=== PATIENT | male | born 1945 | race Caucasian/White ===

== ENCOUNTER 2023-09-06 02:09 | Inpatient (IN) | payer MEDICARE ==
[2023-09-06] VITALS (23 sets, daily range): BP systolic 86–161; BP diastolic 42–88; TEMP 97–98.7; O2SAT 92–100
[~2023-09-06] VITALS: Ht 177.8 cm; Wt 88.0 kg
[2023-09-06 02:45] LABS: BASO # 0.1 10^3/uL (0.0-0.2); BASO % 0.5 % (0.0-1.0); EOS # 0.3 10^3/uL (0.0-0.5); EOS % 1.2 % (0.0-3.0); HEMATOCRIT 37.8 % (42.0-52.0); HEMOGLOBIN 12.2 g/dl (13.5-17.5); LYMPH # 7.1 10^3/uL (1.5-5.0); LYMPH % 32.8 % (24.0-44.0); MEAN CORPUSCULAR HEMOGLOBIN 30.4 pg (27.0-33.0); MEAN CORPUSCULAR HGB CONC 32.3 g/dl (32.0-36.5); MEAN CORPUSCULAR VOLUME 94.3 fl (80.0-96.0); MONO # 1.4 10^3/uL (0.0-0.8); MONO % 6.5 % (2.0-8.0); NEUTROPHILS # 12.6 10^3/uL (1.5-8.5); NEUTROPHILS % 58.1 % (36.0-66.0); PLATELET COUNT, AUTOMATED 217 10^3/uL (150-450); RED BLOOD COUNT 4.01 10^6/uL (4.30-6.10); WHITE BLOOD COUNT 21.6 10^3/uL (4.0-10.0)
[2023-09-06 02:58] LABS: INR 1.15; PROTHROMBIN TIME 14.3 SECONDS (12.5-14.5)
[2023-09-06 03:06] LABS: ALBUMIN 3.8 G/DL (3.2-5.2); BILIRUBIN,DIRECT 0.1 MG/DL (<0.4); BILIRUBIN,TOTAL 0.3 MG/DL (0.3-1.2); CK-MB VALUE MASS 3.4 NG/ML (<3.6); CREATININE FOR GFR 7.48 MG/DL (0.70-1.30); GLOMERULAR FILTRATION RATE 7.5 (>35); POTASSIUM SERUM 5.9 MMOL/L (3.5-5.1); TOTAL PROTEIN 7.5 G/DL (5.7-8.2)
[2023-09-06 03:09] LABS: MB/CK RELATIVE INDEX 2.31 (< OR =4)
[2023-09-06] MEDS ORDERED: UNRESOLVED CLARIFICATION ENTRY XX STA (03:31)
[2023-09-06] MEDS: cefTRIAXone SOD 1 GM in D5W MINI-BAG PLUS 50 ML IV ONE (03:51)
[2023-09-06 03:52] LABS: PROCALCITONIN 0.46 ng/ml
[2023-09-06 04:01] LABS: ABG BASE EXCESS -6.3 (-2.0-2.0); ABG HCO3 19.6 MMOL/L (22.0-26.0); ABG O2 SATURATION 97.7 % (95.0-99.0); ABG PARTIAL PRESSURE CO2 40.2 mmHg (35.0-45.0); ABG PARTIAL PRESSURE O2 110.8 mmHg (75.0-100.0); ABG STANDARD HCO3 19.3 MMOL/L. (22.0-26.0); ABG TOTAL CO2 20.8 MMOL/L (23.0-31.0); ABG pH (ARTERIAL) 7.305 UNITS (7.350-7.450)
[2023-09-06] MEDS: AZITHROMYCIN INJ 500 MG, VIAL MATE ADAPTER 1 EACH in NS 250 ML IV ONE (04:04)
[2023-09-06] MEDS: FUROSEMIDE 100MG/10ML VIAL IV ONE (04:10)
[2023-09-06 04:30] LABS: CK-MB VALUE MASS 3.3 NG/ML (<3.6)
[2023-09-06] MEDS ORDERED: HEPARIN 1,000UNITS/ML 10ML VIAL (FOR RADIOLOGY & DIALYSIS ONLY) XX SCH (04:35)
[2023-09-06] MEDS ORDERED: HEPARIN 1,000UNITS/ML 10ML VIAL (FOR RADIOLOGY & DIALYSIS ONLY) IV PRN (04:35)
[2023-09-06] MEDS ORDERED: SODIUM CHLORIDE 0.9% 1000ML IV PRN (04:35)
[2023-09-06] MEDS ORDERED: LIDOCAINE 1% SDV 5ML VIAL SC PRN (04:35)
[2023-09-06 04:41] LABS: MB/CK RELATIVE INDEX 2.84 (< OR =4)
[2023-09-06] MEDS ORDERED: CALC667T2 PO (04:56)
[2023-09-06] MEDS ORDERED: CLOP75TA2 PO (04:56)
[2023-09-06] MEDS ORDERED: TAMS1CAP17 PO (04:56)
[2023-09-06] MEDS ORDERED: LISI20TA33 PO (04:56)
[2023-09-06] MEDS ORDERED: OXYB5TAB14 PO (04:56)
[2023-09-06] MEDS ORDERED: AMLO1TAB25 PO (04:56)
[2023-09-06] MEDS ORDERED: LISI40TA4 PO (04:56)
[2023-09-06] MEDS ORDERED: TACR1CAP3 PO (04:56)
[2023-09-06] MEDS ORDERED: HOME MED LIST COMPLETE! XX SCH (05:00)
[2023-09-06] MEDS: PANTOPRAZOLE 40MG VIAL IV SCH (05:21)
[2023-09-06] MEDS: FUROSEMIDE 100MG/10ML VIAL IV STA (05:21)
[2023-09-06] MEDS: HEPARIN SOD (PORCINE) 5000UNITS/ML 1ML VIAL/SYRINGE SQ SCH (05:22)
[2023-09-06] MEDS: ONDANSETRON 4MG 2ML VIAL IV PRN (07:01)
[2023-09-06 10:18] LABS: ALBUMIN 3.7 G/DL (3.2-5.2); BILIRUBIN,TOTAL 0.4 MG/DL (0.3-1.2); CALCIUM LEVEL 9.1 MG/DL (8.3-10.6); CREATININE FOR GFR 2.9 MG/DL (0.70-1.30); GLOMERULAR FILTRATION RATE 22.4 (>35); MAGNESIUM LEVEL 1.8 MG/DL (1.8-2.4); POTASSIUM SERUM 3.9 MMOL/L (3.5-5.1); TOTAL PROTEIN 7.8 G/DL (5.7-8.2)
[2023-09-06] MEDS: ASPIRIN 325 MG TAB PO ONE (10:45)
[2023-09-06] MEDS ORDERED: ISOVUE-370 76% 100ML VIAL As Ordered ONE (11:48)
[2023-09-06] MEDS ORDERED: PIPERACILLIN/TAZOBACTAM SOD 3.375 GM in D5W MINI-BAG PLUS 50 ML IV SCH (12:35)
[2023-09-06] MEDS ORDERED: VANCOMYCIN HCL 1,000 MG, VIAL MATE ADAPTER 1 EACH in D5W 250 ML IV ONE (12:40)
[2023-09-06] MEDS: PIPERACILLIN/TAZOBACTAM SOD 4.5 GM in D5W MINI-BAG PLUS 50 ML IV SCH (13:44)
[2023-09-06] MEDS ORDERED: VANCOMYCIN HCL 500 MG in D5W MINI-BAG PLUS 100 ML IV ONE (15:00)
[2023-09-06 16:36] LABS: CK-MB VALUE MASS 3.9 NG/ML (<3.6); MB/CK RELATIVE INDEX 5.2 (< OR =4)
[2023-09-06] MEDS: VANCOMYCIN HCL 750 MG, VIAL MATE ADAPTER 1 EACH in D5W 250 ML IV ONE (16:45)
[2023-09-06] MEDS ORDERED: VANCOMYCIN HCL 1,000 MG, VIAL MATE ADAPTER 1 EACH in D5W 250 ML IV SCH (22:05)
[2023-09-07] VITALS (13 sets, daily range): BP systolic 81–180; BP diastolic 50–74; TEMP 97.8–98.5; O2SAT 88–98
[2023-09-07] MEDS ORDERED: cefTRIAXone SOD 1 GM in D5W MINI-BAG PLUS 50 ML IV SCH (04:00)
[2023-09-07 05:01] LABS: HEMATOCRIT 30.4 % (42.0-52.0); HEMOGLOBIN 10.1 g/dl (13.5-17.5); MEAN CORPUSCULAR HEMOGLOBIN 31.2 pg (27.0-33.0); MEAN CORPUSCULAR HGB CONC 33.2 g/dl (32.0-36.5); MEAN CORPUSCULAR VOLUME 93.8 fl (80.0-96.0); PLATELET COUNT, AUTOMATED 142 10^3/uL (150-450); RED BLOOD COUNT 3.24 10^6/uL (4.30-6.10); WHITE BLOOD COUNT 5.6 10^3/uL (4.0-10.0)
[2023-09-07 05:54] LABS: ALBUMIN 3.1 G/DL (3.2-5.2); BILIRUBIN,TOTAL 0.5 MG/DL (0.3-1.2); CALCIUM LEVEL 7.7 MG/DL (8.3-10.6); CK-MB VALUE MASS 2.3 NG/ML (<3.6); CREATININE FOR GFR 6.62 MG/DL (0.70-1.30); GLOMERULAR FILTRATION RATE 8.6 (>35); MB/CK RELATIVE INDEX 4.79 (< OR =4); POTASSIUM SERUM 5.1 MMOL/L (3.5-5.1); TOTAL PROTEIN 6.3 G/DL (5.7-8.2)
[2023-09-07] MEDS ORDERED: AZITHROMYCIN 250MG TABLET PO SCH (09:00)
[2023-09-07] MEDS: AZITHROMYCIN INJ 500 MG, VIAL MATE ADAPTER 1 EACH in NS 250 ML IV SCH (09:08)
[2023-09-07] MEDS: PATIROMER SORBITEX CALCIUM 8.4 GM POWDER PACKET (VELTASSA) PO ONE (13:55)
[2023-09-07] MEDS ORDERED: VANCOMYCIN HCL 1,000 MG, VIAL MATE ADAPTER 1 EACH in D5W 250 ML IV SCH (16:00)
[2023-09-08 04:00] VITALS: BP 140/62; TEMP 98; O2SAT 97
[2023-09-08] MEDS ORDERED: HEPARIN 1,000UNITS/ML 10ML VIAL (FOR RADIOLOGY & DIALYSIS ONLY) IV PRN (04:55)
[2023-09-08] MEDS ORDERED: SODIUM CHLORIDE 0.9% 1000ML IV PRN (04:55)
[2023-09-08] MEDS ORDERED: LIDOCAINE 1% SDV 5ML VIAL SC PRN (04:55)
[2023-09-08] MEDS ORDERED: HEPARIN 1,000UNITS/ML 10ML VIAL (FOR RADIOLOGY & DIALYSIS ONLY) XX SCH (04:55)
[2023-09-08 07:30] VITALS: BP 170/68; TEMP 98; O2SAT 94
[2023-09-08 12:30] VITALS: BP 160/88; TEMP 97.8; O2SAT 94
[2023-09-08] MEDS: AZITHROMYCIN 250MG TABLET PO SCH (13:06)
[2023-09-08 17:15] VITALS: BP 158/72; TEMP 98.2; O2SAT 96
[2023-09-08 19:40] VITALS: BP 156/72; TEMP 97.7; O2SAT 99
[2023-09-09 01:43] VITALS: BP 156/54; TEMP 98.8; O2SAT 95
[2023-09-09 05:58] VITALS: BP 152/78; TEMP 98.2; O2SAT 97
[2023-09-09 06:03] VITALS: BP 142/84
[2023-09-09 06:53] LABS: BASO % 0.5 % (0.0-1.0); EOS # 0.1 10^3/uL (0.0-0.5); EOS % 2.6 % (0.0-3.0); HEMATOCRIT 31.1 % (42.0-52.0); HEMOGLOBIN 10.4 g/dl (13.5-17.5); LYMPH # 1.2 10^3/uL (1.5-5.0); LYMPH % 31.6 % (24.0-44.0); MEAN CORPUSCULAR HGB CONC 33.4 g/dl (32.0-36.5); MEAN CORPUSCULAR VOLUME 92.6 fl (80.0-96.0); MONO # 0.6 10^3/uL (0.0-0.8); NEUTROPHILS # 1.9 10^3/uL (1.5-8.5); NEUTROPHILS % 49.5 % (36.0-66.0); PLATELET COUNT, AUTOMATED 141 10^3/uL (150-450); RED BLOOD COUNT 3.36 10^6/uL (4.30-6.10); WHITE BLOOD COUNT 3.8 10^3/uL (4.0-10.0)
[2023-09-09 07:11] LABS: ALBUMIN 2.9 G/DL (3.2-5.2); BILIRUBIN,TOTAL 0.5 MG/DL (0.3-1.2); CREATININE FOR GFR 5.89 MG/DL (0.70-1.30); GLOMERULAR FILTRATION RATE 9.9 (>35); MAGNESIUM LEVEL 1.8 MG/DL (1.8-2.4); PHOSPHORUS LEVEL 5.2 MG/DL (2.4-5.1); POTASSIUM SERUM 4.5 MMOL/L (3.5-5.1); TOTAL PROTEIN 6.4 G/DL (5.7-8.2)
[2023-09-09 10:00] VITALS: BP 148/86; TEMP 97.7; O2SAT 90
[2023-09-09 12:32] LABS: PROCALCITONIN 2.59 ng/ml
[2023-09-09] MEDS ORDERED: CEFD300CAP PO (12:44)
[2023-09-09] MEDS ORDERED: AZIT-12 PO (12:44)
[2023-09-09] MEDS ORDERED: LISI20TA33 PO (12:44)
== END 2023-09-09 13:35 | disposition home or self-care (01) | DRG 189 ==
LOC: M ED 02:09 → EDBD 02:09 → M ED INP 03:39 → M ICU 05:06 → M MSPAV 09-08 17:02
PROVIDERS: ADMIT Preventive Medicine Undersea and Hyperbaric Medicine; ATTEND Hospitalist
PROC: 5A1D70Z Performance of Urinary Filtration, Intermittent, Less than 6 Hours Per Day (ICD-10-PCS; 2023-09-06)
PROC: B246ZZZ Ultrasonography of Right and Left Heart (ICD-10-PCS; principal; 2023-09-07)
DX: J96.01 Acute respiratory failure with hypoxia (principal); N18.6 End stage renal disease; J81.0 Acute pulmonary edema; J18.9 Pneumonia, unspecified organism; I50.32 Chronic diastolic (congestive) heart failure; I13.2 Hypertensive heart and chronic kidney disease with heart failure and with stage 5 chronic kidney disease, or end stage renal disease; Z94.4 Liver transplant status; I48.20 Chronic atrial fibrillation, unspecified; I16.1 Hypertensive emergency; D63.1 Anemia in chronic kidney disease; E87.5 Hyperkalemia; Z66 Do not resuscitate; Z86.73 Personal history of transient ischemic attack (TIA), and cerebral infarction without residual deficits; Z99.2 Dependence on renal dialysis; Z87.891 Personal history of nicotine dependence; Z79.02 Long term (current) use of antithrombotics/antiplatelets; Z79.899 Other long term (current) drug therapy; Z85.46 Personal history of malignant neoplasm of prostate

== ENCOUNTER 2023-12-19 19:32 | Inpatient (IN) | payer MEDICARE ==
[~2023-12-19] VITALS: Ht 175.3 cm; Wt 85.0 kg
[~2023-12-19 19:32] MED LIST: AMLO1TAB25 PO; AZIT-12 PO; CALC667T2 PO; CEFD300CAP PO; CLOP75TA2 PO; LISI20TA33 PO; LISI40TA4 PO; OXYB5TAB14 PO; TACR1CAP3 PO; TAMS1CAP17 PO
[2023-12-19] MEDS: IPRATROPIUM 0.5MG/ALBUTEROL 2.5MG INH SOL UD 3ML (DUONEB) NEB PRN (19:59)
[2023-12-19] MEDS: methylPREDNISolone 125MG 2ML VIAL IV ONE (20:08)
[2023-12-19 20:16] LABS: BASO # 0.1 10^3/uL (0.0-0.2); BASO % 0.5 % (0.0-1.0); EOS # 0.5 10^3/uL (0.0-0.5); EOS % 2.8 % (0.0-3.0); HEMATOCRIT 40.5 % (42.0-52.0); HEMOGLOBIN 13.1 g/dl (13.5-17.5); LYMPH # 7.7 10^3/uL (1.5-5.0); LYMPH % 44.9 % (24.0-44.0); MEAN CORPUSCULAR HEMOGLOBIN 31.3 pg (27.0-33.0); MEAN CORPUSCULAR HGB CONC 32.3 g/dl (32.0-36.5); MEAN CORPUSCULAR VOLUME 96.7 fl (80.0-96.0); MONO # 1.4 10^3/uL (0.0-0.8); MONO % 8.1 % (2.0-8.0); NEUTROPHILS # 7.4 10^3/uL (1.5-8.5); NEUTROPHILS % 43.2 % (36.0-66.0); PLATELET COUNT, AUTOMATED 255 10^3/uL (150-450); RED BLOOD COUNT 4.19 10^6/uL (4.30-6.10); WHITE BLOOD COUNT 17.1 10^3/uL (4.0-10.0)
[2023-12-19 20:28] LABS: ABG BASE EXCESS -7.8 (-2.0-2.0); ABG HCO3 19.2 MMOL/L (22.0-26.0); ABG PARTIAL PRESSURE CO2 44.7 mmHg (35.0-45.0); ABG STANDARD HCO3 18.2 MMOL/L. (22.0-26.0); ABG TOTAL CO2 20.6 MMOL/L (23.0-31.0); ABG pH (ARTERIAL) 7.251 UNITS (7.350-7.450)
[2023-12-19] MEDS: FUROSEMIDE 40MG/4ML VIAL IV ONE (20:39)
[2023-12-19] MEDS: NITROGLYCERIN 0.4MG SUBL TABLET SL STA (20:43)
[2023-12-19] MEDS: cefTRIAXone SOD 2 GM in D5W MINI-BAG PLUS 50 ML IV ONE (21:07)
[2023-12-19 21:46] LABS: ALBUMIN 3.9 G/DL (3.2-5.2); BILIRUBIN,DIRECT 0.1 MG/DL (<0.4); BILIRUBIN,TOTAL 0.3 MG/DL (0.3-1.2); CALCIUM LEVEL 7.4 MG/DL (8.3-10.6); CREATININE FOR GFR 6.68 MG/DL (0.70-1.30); GLOMERULAR FILTRATION RATE 8.6 (>35); MB/CK RELATIVE INDEX 2.07 (< OR =4); POTASSIUM SERUM 4.8 MMOL/L (3.5-5.1); TOTAL PROTEIN 7.9 G/DL (5.7-8.2)
[2023-12-19 21:48] LABS: THYROID STIMULATING HORMONE 2.227 uIU/ML (0.55-4.78)
[2023-12-19] MEDS ORDERED: MAGN400T2 PO (22:50)
[2023-12-19] MEDS ORDERED: TACR1CAP3 PO (22:50)
[2023-12-19] MEDS ORDERED: HOME MED LIST COMPLETE! XX SCH (22:55)
[2023-12-19] MEDS: FUROSEMIDE 100MG/10ML VIAL IV STA (23:28)
[2023-12-19 23:45] VITALS: BP 173/86; O2SAT 100
[2023-12-20] VITALS (29 sets, daily range): BP systolic 133–212; BP diastolic 63–100; TEMP 97.2–98.8; O2SAT 87–100
[2023-12-20] MEDS: FUROSEMIDE 100MG/10ML VIAL IV ONE (05:12)
[2023-12-20] MEDS: NITROGLYCERIN 2% OINT 1 GM *U/D* PKT TOP ONE (05:13)
[2023-12-20 05:26] LABS: HEMATOCRIT 37.6 % (42.0-52.0); HEMOGLOBIN 12.5 g/dl (13.5-17.5); MEAN CORPUSCULAR HEMOGLOBIN 31.5 pg (27.0-33.0); MEAN CORPUSCULAR HGB CONC 33.2 g/dl (32.0-36.5); MEAN CORPUSCULAR VOLUME 94.7 fl (80.0-96.0); RED BLOOD COUNT 3.97 10^6/uL (4.30-6.10); WHITE BLOOD COUNT 8.7 10^3/uL (4.0-10.0)
[2023-12-20 05:29] LABS: PLATELET COUNT, AUTOMATED 158 10^3/uL (150-450)
[2023-12-20 05:40] LABS: PROCALCITONIN 5.64 ng/ml
[2023-12-20 05:44] LABS: CALCIUM LEVEL 7.1 MG/DL (8.3-10.6); CREATININE FOR GFR 7.18 MG/DL (0.70-1.30); GLOMERULAR FILTRATION RATE 7.9 (>35); POTASSIUM SERUM 6.3 MMOL/L (3.5-5.1)
[2023-12-20] MEDS: HEPARIN SOD (PORCINE) 5000UNITS/ML 1ML VIAL/SYRINGE SC SCH (06:00)
[2023-12-20] MEDS: HumuLIN R (REGULAR) INSULIN (NovoLIN R) **100U/ML** PER UNIT IV STA (06:03)
[2023-12-20] MEDS: CALCIUM CHLORIDE 10% 1 GM/10 ML SYR IV STA (06:04)
[2023-12-20] MEDS: DEXTROSE 50% 50ML SYRINGE IV STA (06:04)
[2023-12-20] MEDS: cefTRIAXone SOD 1 GM in D5W MINI-BAG PLUS 50 ML IV SCH (09:50)
[2023-12-20] MEDS: AZITHROMYCIN 250MG TABLET PO SCH (09:50)
[2023-12-20] MEDS: CLOPIDOGREL 75 MG TAB PO SCH (09:51)
[2023-12-20] MEDS: lisinopriL 40MG TAB PO SCH (09:51)
[2023-12-20] MEDS: TACROLIMUS 1MG CAP PO SCH ×2 (09:52→17:30)
[2023-12-20] MEDS: PANTOPRAZOLE 40MG TAB (PROTONIX) PO SCH (09:52)
[2023-12-20] MEDS: CALCIUM ACETATE 667MG GELCAP PO SCH (17:30)
[2023-12-20] MEDS ORDERED: hydrALAZINE 20MG/ML 1ML VIAL IV PRN (17:40)
[2023-12-20] MEDS: **hydrALAZINE HCL** 25 MG TAB PO SCH (18:19)
[2023-12-20] MEDS: ACETAMINOPHEN 500 MG TAB PO ONE (22:20)
[2023-12-21] VITALS (9 sets, daily range): BP systolic 134–164; BP diastolic 62–94; TEMP 97–98; O2SAT 91–98
[2023-12-21 05:07] LABS: BASO % 0.1 % (0.0-1.0); EOS # 0.1 10^3/uL (0.0-0.5); EOS % 0.7 % (0.0-3.0); HEMATOCRIT 34.4 % (42.0-52.0); HEMOGLOBIN 11.2 g/dl (13.5-17.5); LYMPH # 1.4 10^3/uL (1.5-5.0); LYMPH % 16.7 % (24.0-44.0); MEAN CORPUSCULAR HEMOGLOBIN 30.8 pg (27.0-33.0); MEAN CORPUSCULAR HGB CONC 32.6 g/dl (32.0-36.5); MEAN CORPUSCULAR VOLUME 94.5 fl (80.0-96.0); MONO # 0.7 10^3/uL (0.0-0.8); MONO % 8.1 % (2.0-8.0); NEUTROPHILS # 6.4 10^3/uL (1.5-8.5); NEUTROPHILS % 73.8 % (36.0-66.0); PLATELET COUNT, AUTOMATED 144 10^3/uL (150-450); RED BLOOD COUNT 3.64 10^6/uL (4.30-6.10); WHITE BLOOD COUNT 8.6 10^3/uL (4.0-10.0)
[2023-12-21 05:52] LABS: CALCIUM LEVEL 7.9 MG/DL (8.3-10.6); CREATININE FOR GFR 5.08 MG/DL (0.70-1.30); GLOMERULAR FILTRATION RATE 11.7 (>35); MAGNESIUM LEVEL 1.9 MG/DL (1.8-2.4); POTASSIUM SERUM 4.7 MMOL/L (3.5-5.1)
[2023-12-21] MEDS ORDERED: SODIUM CHLORIDE 0.9% 1000ML IV PRN ×2 (06:00→06:10)
[2023-12-21] MEDS ORDERED: HEPARIN 1,000UNITS/ML 10ML VIAL (FOR RADIOLOGY & DIALYSIS ONLY) IV PRN (06:00)
[2023-12-21] MEDS ORDERED: LIDOCAINE 1% SDV 5ML VIAL SC PRN ×2 (06:00→06:10)
[2023-12-21] MEDS ORDERED: HEPARIN 1,000UNITS/ML 10ML VIAL (FOR RADIOLOGY & DIALYSIS ONLY) XX SCH ×2 (06:00→06:10)
[2023-12-21] MEDS: HEPARIN 1,000UNITS/ML 10ML VIAL (FOR RADIOLOGY & DIALYSIS ONLY) IV PRN (09:07)
[2023-12-21] MEDS: ACETAMINOPHEN TAB 650MG DOSE (2X325MG) PO PRN (10:42)
[2023-12-21] MEDS: NS 500 ML IV ONE (13:14)
[2023-12-21 13:49] LABS: ALBUMIN 3.1 G/DL (3.2-5.2); BILIRUBIN,DIRECT 0.1 MG/DL (<0.4); BILIRUBIN,TOTAL 0.4 MG/DL (0.3-1.2); TOTAL PROTEIN 6.4 G/DL (5.7-8.2)
[2023-12-22] VITALS (10 sets, daily range): BP systolic 151–171; BP diastolic 66–90; TEMP 97.5; O2SAT 95–99
[2023-12-22 05:15] LABS: CALCIUM LEVEL 7.9 MG/DL (8.3-10.6); CREATININE FOR GFR 6.7 MG/DL (0.70-1.30); GLOMERULAR FILTRATION RATE 8.5 (>35); POTASSIUM SERUM 4.4 MMOL/L (3.5-5.1)
[2023-12-22] MEDS ORDERED: LIDOCAINE 1% SDV 5ML VIAL SC PRN (07:55)
[2023-12-22] MEDS ORDERED: HEPARIN 1,000UNITS/ML 10ML VIAL (FOR RADIOLOGY & DIALYSIS ONLY) IV PRN (07:55)
[2023-12-22] MEDS ORDERED: SODIUM CHLORIDE 0.9% 1000ML IV PRN (07:55)
[2023-12-22] MEDS: HEPARIN 1,000UNITS/ML 10ML VIAL (FOR RADIOLOGY & DIALYSIS ONLY) XX SCH (11:20)
[2023-12-22] MEDS: CEFDINIR 300 MG CAP (OMNICEF) PO SCH (14:59)
[2023-12-22] MEDS ORDERED: CEFD300CAP PO (15:19)
[2023-12-22] MEDS ORDERED: HYDR25TA87 PO (15:19)
== END 2023-12-22 16:26 | disposition home or self-care (01) | DRG 291 ==
LOC: M ED 19:32 → M ED INP 22:46 → M ICU 23:38
PROVIDERS: ADMIT Preventive Medicine Undersea and Hyperbaric Medicine; ATTEND Hospitalist
DX: I13.2 Hypertensive heart and chronic kidney disease with heart failure and with stage 5 chronic kidney disease, or end stage renal disease (principal); J96.01 Acute respiratory failure with hypoxia; J81.0 Acute pulmonary edema; N18.6 End stage renal disease; J18.9 Pneumonia, unspecified organism; I50.23 Acute on chronic systolic (congestive) heart failure; D84.9 Immunodeficiency, unspecified; Z94.4 Liver transplant status; N25.81 Secondary hyperparathyroidism of renal origin; I48.0 Paroxysmal atrial fibrillation; E87.5 Hyperkalemia; D64.9 Anemia, unspecified; Z86.73 Personal history of transient ischemic attack (TIA), and cerebral infarction without residual deficits; Z79.899 Other long term (current) drug therapy; Z87.891 Personal history of nicotine dependence; Z85.46 Personal history of malignant neoplasm of prostate; Z87.442 Personal history of urinary calculi

== ENCOUNTER → 2024-01-10 | Outpatient (CLI) | payer MEDICARE ==
[~2024-01-10] MED LIST changes: +HYDR25TA87 PO; +MAGN400T2 PO
== END ==
LOC: M WUC 11:33
PROVIDERS: ATTEND Nurse Practitioner Family
DX: J18.9 Pneumonia, unspecified organism (principal)

== ENCOUNTER 2024-12-25 01:27 | Inpatient (IN) | payer MEDICARE ==
[~2024-12-25] VITALS: Ht 182.9 cm; Wt 89.0 kg
[~2024-12-25 01:27] MED LIST changes: +LISI40TA10 PO; -LISI40TA4 PO
[2024-12-25 02:14] LABS: BASO # 0.0 10^3/uL (0.0-0.2); BASO % 0.2 % (0.0-1.0); EOS # 0.1 10^3/uL (0.0-0.5); EOS % 1.6 % (0.0-3.0); LYMPH # 1.0 10^3/uL (1.5-5.0); LYMPH % 12.3 % (24.0-44.0); MONO # 0.9 10^3/uL (0.0-0.8); MONO % 10.2 % (2.0-8.0); NEUTROPHILS # 6.3 10^3/uL (1.5-8.5); NEUTROPHILS % 75.5 % (36.0-66.0); PLATELET COUNT, AUTOMATED 149 10^3/uL (150-450)
[2024-12-25 02:32] LABS: CALCIUM LEVEL 7.4 MG/DL (8.3-10.6); CARBON DIOXIDE LEVEL 30.0 MMOL/L (20-31); CHLORIDE LEVEL 96.0 MMOL/L (98-107); CREATININE FOR GFR 7.93 MG/DL (0.70-1.30); GLOMERULAR FILTRATION RATE 6.3 (>35); POTASSIUM SERUM 5.9 MMOL/L (3.5-5.1); SODIUM LEVEL 140.0 MMOL/L (136-145)
[2024-12-25] MEDS ORDERED: ISOVUE-370 76% 100 ML VIAL As Ordered ONE (03:10)
[2024-12-25 03:18] LABS: CK-MB VALUE MASS 2.2 NG/ML (<3.6)
[2024-12-25 03:25] LABS: CPK CREATINE PHOSPHOKINASE 127.0 U/L (46-171); MB/CK RELATIVE INDEX 1.73 (< OR =4)
[2024-12-25] MEDS: IPRATROPIUM 0.5 MG/ALBUTEROL 2.5 MG INH SOL UD 3 ML NEB PRN ×2 (03:31→07:47)
[2024-12-25 04:11] LABS: CK-MB VALUE MASS 2.2 NG/ML (<3.6)
[2024-12-25 04:18] LABS: CPK CREATINE PHOSPHOKINASE 118.0 U/L (46-171); MB/CK RELATIVE INDEX 1.86 (< OR =4)
[2024-12-25] MEDS: cefTRIAXone SOD 1 GM in DEXTROSE 5% (D5W) ADV/MINI-BAG 50 ML IV ONE ×2 (04:40→06:50)
[2024-12-25 06:02] LABS: INR 1.08
[2024-12-25 06:09] LABS: ALT/SGPT 12.0 U/L (7.0-40); AST/SGOT 13.0 U/L (<34)
[2024-12-25] MEDS ORDERED: HEPARIN 1,000 UNITS/ML 10 ML VIAL (FOR RADIOLOGY & DIALYSIS ONLY) IV PRN (07:40)
[2024-12-25] MEDS ORDERED: LIDOCAINE 1% SDV 5 ML VIAL SC PRN (07:40)
[2024-12-25] MEDS ORDERED: SODIUM CHLORIDE 0.9% 1000 ML IV PRN (07:40)
[2024-12-25] MEDS: DOXYCYCLINE HYCLATE 100 MG TABLET PO SCH (08:52)
[2024-12-25] MEDS: HEPARIN SOD 5000 UNITS/ML 1 ML VIAL/SYRINGE SC SCH (08:53)
[2024-12-25] MEDS ORDERED: TACROLIMUS 1MG CAP PO SCH ×4 (09:00→21:00)
[2024-12-25] MEDS: CLOPIDOGREL 75 MG TAB PO SCH (09:00)
[2024-12-25] MEDS ORDERED: CLOPIDOGREL 75 MG TAB PO SCH ×2 (09:00)
[2024-12-25] MEDS: MAGNESIUM OXIDE 400 MG TAB PO SCH (09:00)
[2024-12-25] MEDS: ATORVASTATIN 10 MG TAB PO SCH (09:00)
[2024-12-25] MEDS: amLODIPine 10 MG TAB PO SCH (09:00)
[2024-12-25] MEDS ORDERED: SEVE800T3 PO (10:44)
[2024-12-25] MEDS ORDERED: ATOR1TAB19 PO (10:44)
[2024-12-25] MEDS ORDERED: HYDR25TA87 PO (10:44)
[2024-12-25] MEDS ORDERED: MINO2.5T PO (10:44)
[2024-12-25] MEDS ORDERED: HOME MED LIST COMPLETE! XX SCH (10:45)
[2024-12-25] MEDS: **hydrALAZINE HCL** 25 MG TAB PO SCH (13:00)
[2024-12-25] MEDS: HEPARIN 1,000 UNITS/ML 10 ML VIAL (FOR RADIOLOGY & DIALYSIS ONLY) XX SCH (13:44)
[2024-12-25 17:15] VITALS: BP 146/70; TEMP 98.7; O2SAT 95
[2024-12-25] MEDS: ACETAMINOPHEN 500 MG TAB PO PRN (18:19)
[2024-12-25] MEDS: SEVELAMER *CARBONate* 800 MG TAB PO SCH (18:19)
[2024-12-25] MEDS: TACROLIMUS 1MG CAP PO SCH (18:36)
[2024-12-25 20:00] VITALS: BP 171/78; TEMP 98.3; O2SAT 93
[2024-12-26] VITALS: BP 169/67; TEMP 97.9; O2SAT 94
[2024-12-26 04:19] VITALS: BP 181/70; TEMP 99.1; O2SAT 95
[2024-12-26 05:45] LABS: PLATELET COUNT, AUTOMATED 150 10^3/uL (150-450)
[2024-12-26 06:14] LABS: ALT/SGPT 14.0 U/L (7.0-40); AST/SGOT 14.0 U/L (<34); CALCIUM LEVEL 8.0 MG/DL (8.3-10.6); CARBON DIOXIDE LEVEL 29.0 MMOL/L (20-31); CHLORIDE LEVEL 99.0 MMOL/L (98-107); CREATININE FOR GFR 5.65 MG/DL (0.70-1.30); GLOMERULAR FILTRATION RATE 9.5 (>35); POTASSIUM SERUM 6.0 MMOL/L (3.5-5.1); SODIUM LEVEL 139.0 MMOL/L (136-145)
[2024-12-26] MEDS ORDERED: LIDOCAINE 1% SDV 5 ML VIAL SC PRN (06:50)
[2024-12-26] MEDS ORDERED: HEPARIN 1,000 UNITS/ML 10 ML VIAL (FOR RADIOLOGY & DIALYSIS ONLY) IV PRN (06:50)
[2024-12-26] MEDS ORDERED: SODIUM CHLORIDE 0.9% 1000 ML IV PRN (06:50)
[2024-12-26 07:45] VITALS: BP 176/75; TEMP 97.3; O2SAT 96
[2024-12-26] MEDS: cefTRIAXone SOD 2 GM in DEXTROSE 5% (D5W) ADV/MINI-BAG 50 ML IV SCH (08:00)
[2024-12-26] MEDS: HEPARIN 1,000 UNITS/ML 10 ML VIAL (FOR RADIOLOGY & DIALYSIS ONLY) XX SCH (09:51)
[2024-12-26] MEDS ORDERED: CEFD1CAP9 PO (11:53)
[2024-12-26] MEDS ORDERED: DOXY100T PO (11:53)
[2024-12-26 12:45] VITALS: BP 150/63; TEMP 98; O2SAT 96
[2024-12-26 13:11] VITALS: BP 150/63
[2024-12-26] MEDS: TACROLIMUS 1MG CAP PO SCH (13:12)
[2024-12-26 14:15] LABS: CALCIUM LEVEL 8.8 MG/DL (8.3-10.6); CARBON DIOXIDE LEVEL 27.0 MMOL/L (20-31); CHLORIDE LEVEL 99.0 MMOL/L (98-107); CREATININE FOR GFR 2.94 MG/DL (0.70-1.30); GLOMERULAR FILTRATION RATE 20.7 (>35); MAGNESIUM LEVEL 1.9 MG/DL (1.8-2.4); POTASSIUM SERUM 3.9 MMOL/L (3.5-5.1); SODIUM LEVEL 140.0 MMOL/L (136-145)
[2024-12-26] MEDS ORDERED: HYDR50TA46 PO (14:49)
== END 2024-12-26 15:15 | disposition home or self-care (01) | DRG 291 ==
LOC: M ED 01:27 → M ED INP 01:28 → OBSVTOIN 07:15 → M ICU 17:16
PROVIDERS: ADMIT Student in an Organized Health Care Education/Training Program; ATTEND Student in an Organized Health Care Education/Training Program
PROC: 5A1D70Z Performance of Urinary Filtration, Intermittent, Less than 6 Hours Per Day (ICD-10-PCS; principal; 2024-12-25)
DX: I13.2 Hypertensive heart and chronic kidney disease with heart failure and with stage 5 chronic kidney disease, or end stage renal disease (principal); N18.6 End stage renal disease; J96.01 Acute respiratory failure with hypoxia; J18.9 Pneumonia, unspecified organism; I50.33 Acute on chronic diastolic (congestive) heart failure; Z94.4 Liver transplant status; N25.81 Secondary hyperparathyroidism of renal origin; I48.91 Unspecified atrial fibrillation; K74.60 Unspecified cirrhosis of liver; D64.9 Anemia, unspecified; F39 Unspecified mood [affective] disorder; D69.6 Thrombocytopenia, unspecified; E87.5 Hyperkalemia; Z99.2 Dependence on renal dialysis; Z85.46 Personal history of malignant neoplasm of prostate; Z90.49 Acquired absence of other specified parts of digestive tract; Z86.73 Personal history of transient ischemic attack (TIA), and cerebral infarction without residual deficits; Z79.899 Other long term (current) drug therapy

== ENCOUNTER 2025-02-13 15:29 | Inpatient (IN) | payer MEDICARE ==
[~2025-02-13] VITALS: Ht 177.8 cm; Wt 74.0 kg
[~2025-02-13 15:29] MED LIST changes: +ATOR1TAB19 PO; +CEFD1CAP9 PO; +DOXY100T PO; +HYDR50TA46 PO; +MINO2.5T PO; +SEVE800T3 PO
[2025-02-13] MEDS ORDERED: HEPARIN SOD 5000 UNITS/ML 1 ML VIAL/SYRINGE IV PRN (19:25)
[2025-02-13] MEDS: hydrALAZINE 20 MG/ML 1 ML VIAL IV ONE (19:54)
[2025-02-13] MEDS: HEPARIN SOD 5000 UNITS/ML 1 ML VIAL/SYRINGE IV ONE (19:56)
[2025-02-13] MEDS: HEPARIN DRIP 25,000 UNITS in IV 1 EA IV SCH (19:57)
[2025-02-13 20:02] LABS: BASO # 0.0 10^3/uL (0.0-0.2); BASO % 0.1 % (0.0-1.0); EOS # 0.1 10^3/uL (0.0-0.5); EOS % 1.2 % (0.0-3.0); LYMPH # 1.0 10^3/uL (1.5-5.0); LYMPH % 15.0 % (24.0-44.0); MONO # 0.8 10^3/uL (0.0-0.8); MONO % 12.1 % (2.0-8.0); NEUTROPHILS # 4.9 10^3/uL (1.5-8.5); NEUTROPHILS % 71.3 % (36.0-66.0); PLATELET COUNT, AUTOMATED 169 10^3/uL (150-450)
[2025-02-13] MEDS ORDERED: HOME MED LIST COMPLETE! XX SCH (20:20)
[2025-02-13 20:26] LABS: CALCIUM LEVEL 7.7 MG/DL (8.3-10.6); CARBON DIOXIDE LEVEL 28.0 MMOL/L (20-31); CHLORIDE LEVEL 99.0 MMOL/L (98-107); CREATININE FOR GFR 6.38 MG/DL (0.70-1.30); GLOMERULAR FILTRATION RATE 8.2 (>35); POTASSIUM SERUM 5.2 MMOL/L (3.5-5.1); SODIUM LEVEL 140.0 MMOL/L (136-145)
[2025-02-13] MEDS: **hydrALAZINE** 50 MG TAB PO SCH (22:08)
[2025-02-14 07:24] LABS: BASO # 0.0 10^3/uL (0.0-0.2); BASO % 0.3 % (0.0-1.0); EOS # 0.1 10^3/uL (0.0-0.5); EOS % 0.8 % (0.0-3.0); LYMPH # 1.0 10^3/uL (1.5-5.0); LYMPH % 16.0 % (24.0-44.0); MONO # 0.7 10^3/uL (0.0-0.8); MONO % 11.0 % (2.0-8.0); NEUTROPHILS # 4.4 10^3/uL (1.5-8.5); NEUTROPHILS % 71.6 % (36.0-66.0); PLATELET COUNT, AUTOMATED 167 10^3/uL (150-450)
[2025-02-14 07:56] LABS: ALT/SGPT 49.0 U/L (7.0-40); AST/SGOT 49.0 U/L (<34); CALCIUM LEVEL 7.7 MG/DL (8.3-10.6); CARBON DIOXIDE LEVEL 26.0 MMOL/L (20-31); CHLORIDE LEVEL 98.0 MMOL/L (98-107); CREATININE FOR GFR 7.23 MG/DL (0.70-1.30); GLOMERULAR FILTRATION RATE 7.0 (>35); MAGNESIUM LEVEL 1.7 MG/DL (1.8-2.4); POTASSIUM SERUM 5.4 MMOL/L (3.5-5.1); SODIUM LEVEL 137.0 MMOL/L (136-145)
[2025-02-14] MEDS: TACROLIMUS 1MG CAP PO SCH ×2 (08:58→17:24)
[2025-02-14] MEDS: MAGNESIUM OXIDE 400 MG TAB PO SCH (08:58)
[2025-02-14] MEDS: CLOPIDOGREL 75 MG TAB PO SCH (08:58)
[2025-02-14] MEDS: ATORVASTATIN 10 MG TAB PO SCH (08:58)
[2025-02-14] MEDS: amLODIPine 10 MG TAB PO SCH (08:59)
[2025-02-14] MEDS: SEVELAMER *CARBONate* 800 MG TAB PO SCH (08:59)
[2025-02-14] MEDS: PATIROMER SORBITEX CALCIUM 8.4GM POWDER PACKET PO ONE (09:04)
[2025-02-14] MEDS: FUROSEMIDE 100 MG/10 ML VIAL IV ONE (09:18)
[2025-02-14 14:32] VITALS: BP 179/71; TEMP 97.7; O2SAT 97
[2025-02-14 14:52] LABS: INR 1.02
[2025-02-14 15:48] VITALS: BP 139/58
[2025-02-14 19:47] VITALS: BP 128/62; TEMP 97.7; O2SAT 94
[2025-02-14] MEDS: HEPARIN SOD 5000 UNITS/ML 1 ML VIAL/SYRINGE SQ SCH (20:37)
[2025-02-15] VITALS (7 sets, daily range): BP systolic 74–158; BP diastolic 40–67; TEMP 97.2–97.7; O2SAT 94–98
[2025-02-15] MEDS ORDERED: LIDOCAINE 1% SDV 5 ML VIAL SC PRN (06:00)
[2025-02-15] MEDS ORDERED: HEPARIN 1,000 UNITS/ML 10 ML VIAL (FOR RADIOLOGY & DIALYSIS ONLY) IV PRN (06:00)
[2025-02-15] MEDS ORDERED: SODIUM CHLORIDE 0.9% 1000 ML IV PRN (06:00)
[2025-02-15 06:43] LABS: BASO # 0.0 10^3/uL (0.0-0.2); BASO % 0.1 % (0.0-1.0); EOS # 0.1 10^3/uL (0.0-0.5); EOS % 0.9 % (0.0-3.0); LYMPH # 1.0 10^3/uL (1.5-5.0); LYMPH % 13.1 % (24.0-44.0); MONO # 0.8 10^3/uL (0.0-0.8); MONO % 10.7 % (2.0-8.0); NEUTROPHILS # 5.6 10^3/uL (1.5-8.5); NEUTROPHILS % 74.8 % (36.0-66.0); PLATELET COUNT, AUTOMATED 170 10^3/uL (150-450)
[2025-02-15 07:19] LABS: ALT/SGPT 33.0 U/L (7.0-40); AST/SGOT 18.0 U/L (<34); CALCIUM LEVEL 7.8 MG/DL (8.3-10.6); CARBON DIOXIDE LEVEL 24.0 MMOL/L (20-31); CHLORIDE LEVEL 96.0 MMOL/L (98-107); CREATININE FOR GFR 8.86 MG/DL (0.70-1.30); GLOMERULAR FILTRATION RATE 5.5 (>35); MAGNESIUM LEVEL 1.7 MG/DL (1.8-2.4); POTASSIUM SERUM 5.7 MMOL/L (3.5-5.1); SODIUM LEVEL 136.0 MMOL/L (136-145)
[2025-02-15] MEDS: NS 250 ML IV SCH (07:50)
[2025-02-15] MEDS: MIDAZOLAM INJ 2 MG/2 ML VIAL IV PRN ×2 (08:35→11:09)
[2025-02-15] MEDS: ceFAZolin SODIUM 2 GM in DEXTROSE 5% (D5W) ADV/MINI-BAG 50 ML IV ONE (08:35)
[2025-02-15] MEDS: HEPARIN 1,000 UNITS/ML 10 ML VIAL (FOR RADIOLOGY & DIALYSIS ONLY) IV PRN ×2 (08:55→11:13)
[2025-02-15] MEDS: ALTEPLASE 2 MG/2 ML VIAL XX ONE (09:01)
[2025-02-15] MEDS: LIDOCAINE 1% MDV 20 ML VIAL SC SCH ×2 (10:35→11:11)
[2025-02-15] MEDS: ISOVUE-300 61% 100 ML VIAL IV SCH (11:12)
[2025-02-15] MEDS: HEPARIN 1,000 UNITS/ML 10 ML VIAL (FOR RADIOLOGY & DIALYSIS ONLY) XX SCH (13:52)
[2025-02-15] MEDS ORDERED: HEPARIN SOD 5000 UNITS/ML 1 ML VIAL/SYRINGE IV PRN (16:40)
[2025-02-15] MEDS: NS 500 ML IV ONE (17:16)
[2025-02-15] MEDS: HEPARIN SOD 5000 UNITS/ML 1 ML VIAL/SYRINGE IV ONE (19:32)
[2025-02-15] MEDS: HEPARIN DRIP 25,000 UNITS in IV 1 EA IV SCH (19:36)
[2025-02-16 00:40] VITALS: BP 138/69; TEMP 97.9; O2SAT 100
[2025-02-16 00:54] LABS: PLATELET COUNT, AUTOMATED 196 10^3/uL (150-450)
[2025-02-16 01:52] LABS: ALT/SGPT 21.0 U/L (7.0-40); AST/SGOT 12.0 U/L (<34); CALCIUM LEVEL 7.7 MG/DL (8.3-10.6); CARBON DIOXIDE LEVEL 24.0 MMOL/L (20-31); CHLORIDE LEVEL 95.0 MMOL/L (98-107); CREATININE FOR GFR 5.54 MG/DL (0.70-1.30); GLOMERULAR FILTRATION RATE 9.7 (>35); MAGNESIUM LEVEL 1.8 MG/DL (1.8-2.4); POTASSIUM SERUM 4.8 MMOL/L (3.5-5.1); SODIUM LEVEL 136.0 MMOL/L (136-145)
[2025-02-16 03:54] VITALS: BP 105/58; TEMP 97.7; O2SAT 93
[2025-02-16] MEDS ORDERED: HEPARIN 1,000 UNITS/ML 10 ML VIAL (FOR RADIOLOGY & DIALYSIS ONLY) IV PRN ×3 (06:00→16:25)
[2025-02-16] MEDS ORDERED: SODIUM CHLORIDE 0.9% 1000 ML IV PRN (06:00)
[2025-02-16 06:45] LABS: BASO # 0.0 10^3/uL (0.0-0.2); BASO % 0.1 % (0.0-1.0); EOS # 0.0 10^3/uL (0.0-0.5); EOS % 0.1 % (0.0-3.0); LYMPH # 0.9 10^3/uL (1.5-5.0); LYMPH % 8.1 % (24.0-44.0); MONO # 1.4 10^3/uL (0.0-0.8); MONO % 12.8 % (2.0-8.0); NEUTROPHILS # 8.5 10^3/uL (1.5-8.5); NEUTROPHILS % 78.4 % (36.0-66.0); PLATELET COUNT, AUTOMATED 198 10^3/uL (150-450)
[2025-02-16 07:34] LABS: ALT/SGPT 18.0 U/L (7.0-40); AST/SGOT 13.0 U/L (<34); CALCIUM LEVEL 7.9 MG/DL (8.3-10.6); CARBON DIOXIDE LEVEL 25.0 MMOL/L (20-31); CHLORIDE LEVEL 93.0 MMOL/L (98-107); CREATININE FOR GFR 6.04 MG/DL (0.70-1.30); GLOMERULAR FILTRATION RATE 8.7 (>35); MAGNESIUM LEVEL 1.8 MG/DL (1.8-2.4); POTASSIUM SERUM 4.7 MMOL/L (3.5-5.1); SODIUM LEVEL 135.0 MMOL/L (136-145)
[2025-02-16] MEDS: HEPARIN 1,000 UNITS/ML 10 ML VIAL (FOR RADIOLOGY & DIALYSIS ONLY) XX SCH (08:35)
[2025-02-16] MEDS: LIDOCAINE 1% MDV 20 ML VIAL SC SCH ×2 (11:40→16:25)
[2025-02-16] MEDS ORDERED: NS 250 ML IV SCH (11:40)
[2025-02-16] MEDS ORDERED: ceFAZolin SODIUM 2 GM in DEXTROSE 5% (D5W) ADV/MINI-BAG 50 ML IV ONE (11:40)
[2025-02-16] MEDS: ISOVUE-300 61% 100 ML VIAL IV SCH ×2 (11:40→16:25)
[2025-02-16 12:22] VITALS: BP 123/55; TEMP 97.5; O2SAT 94
[2025-02-16] MEDS ORDERED: ceFAZolin SODIUM 3 GM in DEXTROSE 5% (D5W) MINI-BAG PLU 100 ML IV ONE (12:45)
[2025-02-16] MEDS: NS 250 ML IV SCH (16:25)
[2025-02-16] MEDS: ceFAZolin SODIUM 2 GM in DEXTROSE 5% (D5W) ADV/MINI-BAG 50 ML IV ONE (16:27)
[2025-02-16] MEDS: ALTEPLASE 2 MG/2 ML VIAL XX ONE (16:29)
[2025-02-16] MEDS: MAG SULF 1GM/100ML (MAG RUN) 1 GM in IV 1 EA IV ONE (16:55)
[2025-02-16 20:04] VITALS: BP 105/49; TEMP 99.8; O2SAT 92
[2025-02-16 20:24] VITALS: BP 106/50
[2025-02-17 03:58] VITALS: BP 132/63; TEMP 98; O2SAT 91
[2025-02-17 06:59] LABS: BASO # 0.0 10^3/uL (0.0-0.2); BASO % 0.1 % (0.0-1.0); EOS # 0.0 10^3/uL (0.0-0.5); EOS % 0.2 % (0.0-3.0); LYMPH # 0.9 10^3/uL (1.5-5.0); LYMPH % 10.5 % (24.0-44.0); MONO # 1.2 10^3/uL (0.0-0.8); MONO % 13.9 % (2.0-8.0); NEUTROPHILS # 6.3 10^3/uL (1.5-8.5); NEUTROPHILS % 75.1 % (36.0-66.0); PLATELET COUNT, AUTOMATED 146 10^3/uL (150-450)
[2025-02-17 08:36] LABS: ALT/SGPT 10.0 U/L (7.0-40); AST/SGOT 12.0 U/L (<34); CALCIUM LEVEL 7.8 MG/DL (8.3-10.6); CARBON DIOXIDE LEVEL 27.0 MMOL/L (20-31); CHLORIDE LEVEL 94.0 MMOL/L (98-107); CREATININE FOR GFR 4.48 MG/DL (0.70-1.30); GLOMERULAR FILTRATION RATE 12.5 (>35); MAGNESIUM LEVEL 2.0 MG/DL (1.8-2.4); POTASSIUM SERUM 3.9 MMOL/L (3.5-5.1); SODIUM LEVEL 134.0 MMOL/L (136-145)
[2025-02-17] MEDS: ceFAZolin SOD 1 GM in DEXTROSE 5% (D5W) ADV/MINI-BAG 50 ML IV ONE (10:49)
[2025-02-17 12:25] VITALS: BP 116/58; TEMP 97.9; O2SAT 94
[2025-02-17 19:47] VITALS: BP 100/52; TEMP 97.7; O2SAT 93
[2025-02-17 21:42] VITALS: BP 110/60
[2025-02-18] VITALS (14 sets, daily range): BP systolic 108–159; BP diastolic 53–84; TEMP 97.7–98.2; O2SAT 92–98
[2025-02-18 03:31] LABS: BASO # 0.0 10^3/uL (0.0-0.2); BASO % 0.1 % (0.0-1.0); EOS # 0.0 10^3/uL (0.0-0.5); EOS % 0.4 % (0.0-3.0); LYMPH # 0.8 10^3/uL (1.5-5.0); LYMPH % 11.4 % (24.0-44.0); MONO # 1.1 10^3/uL (0.0-0.8); MONO % 14.3 % (2.0-8.0); NEUTROPHILS # 5.4 10^3/uL (1.5-8.5); NEUTROPHILS % 73.4 % (36.0-66.0); PLATELET COUNT, AUTOMATED 141 10^3/uL (150-450)
[2025-02-18 04:04] LABS: ALT/SGPT < 9 U/L (7.0-40); AST/SGOT 9 U/L (<34); CALCIUM LEVEL 8.0 MG/DL (8.3-10.6); CARBON DIOXIDE LEVEL 27 MMOL/L (20-31); CHLORIDE LEVEL 94 MMOL/L (98-107); CREATININE FOR GFR 6.27 MG/DL (0.70-1.30); GLOMERULAR FILTRATION RATE 8.4 (>35); MAGNESIUM LEVEL 1.9 MG/DL (1.8-2.4); POTASSIUM SERUM 4.1 MMOL/L (3.5-5.1); SODIUM LEVEL 133 MMOL/L (136-145)
[2025-02-18] MEDS ORDERED: LIDOCAINE 2% 100 MG/5 ML SDV (FOR ANES.) As Ordered ONE (12:41)
[2025-02-18] MEDS ORDERED: ONDANSETRON 4MG/2ML VIAL As Ordered ONE (12:41)
[2025-02-18] MEDS ORDERED: dexAMETHasone 4 MG/ML 1 ML VIAL As Ordered ONE (12:41)
[2025-02-18] MEDS: HEPARIN 1,000 UNITS/ML 10 ML VIAL (FOR RADIOLOGY & DIALYSIS ONLY) IV PRN (12:44)
[2025-02-18] MEDS: ALTEPLASE 2 MG/2 ML VIAL XX ONE (12:57)
[2025-02-18] MEDS ORDERED: NS (Normal Saline) 0.9% 1,000 ML IV SCH ×2 (15:15)
[2025-02-18] MEDS: ISOVUE-300 61% 100 ML VIAL IV SCH (15:19)
[2025-02-18] MEDS: LIDOCAINE 1% MDV 20 ML VIAL SC SCH (15:20)
[2025-02-18] MEDS: NS 250 ML IV SCH (16:14)
[2025-02-18 16:46] LABS: INR 1.31
[2025-02-18] MEDS: ceFAZolin SOD 1 GM in DEXTROSE 5% (D5W) ADV/MINI-BAG 50 ML IV SCH (17:40)
[2025-02-18] MEDS ORDERED: LR 1,000 ML IV ONE (18:55)
[2025-02-18] MEDS: HEPARIN DRIP 25,000 UNITS in IV 1 EA IV SCH (19:53)
[2025-02-18] MEDS: MORPHINE 4 MG/ML 1 ML VIAL IV ONE (20:31)
[2025-02-19] VITALS (24 sets, daily range): BP systolic 99–134; BP diastolic 46–60; TEMP 97.9–98.3; O2SAT 86–96
[2025-02-19 02:25] LABS: INR 1.26
[2025-02-19 05:57] LABS: BASO # 0.0 10^3/uL (0.0-0.2); BASO % 0.0 % (0.0-1.0); EOS # 0.0 10^3/uL (0.0-0.5); EOS % 0.0 % (0.0-3.0); LYMPH # 0.7 10^3/uL (1.5-5.0); LYMPH % 8.6 % (24.0-44.0); MONO # 0.8 10^3/uL (0.0-0.8); MONO % 10.3 % (2.0-8.0); NEUTROPHILS # 6.3 10^3/uL (1.5-8.5); NEUTROPHILS % 80.7 % (36.0-66.0); PLATELET COUNT, AUTOMATED 152 10^3/uL (150-450)
[2025-02-19] MEDS ORDERED: HEPARIN 1,000 UNITS/ML 10 ML VIAL (FOR RADIOLOGY & DIALYSIS ONLY) IV PRN (06:00)
[2025-02-19] MEDS ORDERED: SODIUM CHLORIDE 0.9% 1000 ML IV PRN (06:00)
[2025-02-19 06:27] LABS: ALT/SGPT < 9 U/L (7.0-40); AST/SGOT 12 U/L (<34); CALCIUM LEVEL 7.8 MG/DL (8.3-10.6); CARBON DIOXIDE LEVEL 25 MMOL/L (20-31); CHLORIDE LEVEL 92 MMOL/L (98-107); CREATININE FOR GFR 7.82 MG/DL (0.70-1.30); GLOMERULAR FILTRATION RATE 6.4 (>35); MAGNESIUM LEVEL 2.1 MG/DL (1.8-2.4); POTASSIUM SERUM 5.1 MMOL/L (3.5-5.1); SODIUM LEVEL 131 MMOL/L (136-145)
[2025-02-19] MEDS: NS 250 ML IV SCH (07:30)
[2025-02-19] MEDS: HEPARIN 1,000 UNITS/ML 10 ML VIAL (FOR RADIOLOGY & DIALYSIS ONLY) IV PRN (08:40)
[2025-02-19] MEDS: ISOVUE-300 61% 100 ML VIAL IV SCH (09:29)
[2025-02-19] MEDS: LIDOCAINE 1% MDV 20 ML VIAL SC SCH (09:30)
[2025-02-19] MEDS: ALTEPLASE 2 MG/2 ML VIAL XX ONE (09:35)
[2025-02-19] MEDS: HEPARIN 1,000 UNITS/ML 10 ML VIAL (FOR RADIOLOGY & DIALYSIS ONLY) XX SCH (13:24)
[2025-02-20 04:02] VITALS: BP 122/57; TEMP 98; O2SAT 95
[2025-02-20 05:31] LABS: BASO # 0.0 10^3/uL (0.0-0.2); BASO % 0.1 % (0.0-1.0); EOS # 0.1 10^3/uL (0.0-0.5); EOS % 0.7 % (0.0-3.0); LYMPH # 0.9 10^3/uL (1.5-5.0); LYMPH % 13.3 % (24.0-44.0); MONO # 1.0 10^3/uL (0.0-0.8); MONO % 13.7 % (2.0-8.0); NEUTROPHILS # 5.0 10^3/uL (1.5-8.5); NEUTROPHILS % 71.8 % (36.0-66.0); PLATELET COUNT, AUTOMATED 152 10^3/uL (150-450)
[2025-02-20 05:57] LABS: ALT/SGPT < 9 U/L (7.0-40); AST/SGOT 15 U/L (<34); CALCIUM LEVEL 7.8 MG/DL (8.3-10.6); CARBON DIOXIDE LEVEL 26 MMOL/L (20-31); CHLORIDE LEVEL 100 MMOL/L (98-107); CREATININE FOR GFR 5.06 MG/DL (0.70-1.30); GLOMERULAR FILTRATION RATE 10.8 (>35); MAGNESIUM LEVEL 2.0 MG/DL (1.8-2.4); POTASSIUM SERUM 4.4 MMOL/L (3.5-5.1); SODIUM LEVEL 137 MMOL/L (136-145)
[2025-02-20 07:45] VITALS: BP 119/56; TEMP 99.8; O2SAT 94
[2025-02-20 12:00] VITALS: BP 129/58; TEMP 98.3; O2SAT 93
[2025-02-20] MEDS: IPRATROPIUM 0.5 MG/ALBUTEROL 2.5 MG INH SOL UD 3 ML NEB SCH (14:16)
[2025-02-20 15:45] VITALS: BP 126/60; TEMP 98.2; O2SAT 97
[2025-02-20 16:45] VITALS: BP 141/55; TEMP 97.7; O2SAT 93
[2025-02-20 20:50] VITALS: BP 120/53; TEMP 97.7; O2SAT 93
[2025-02-21] MEDS: ACETAMINOPHEN 325 MG TAB PO PRN (00:35)
[2025-02-21 03:40] VITALS: BP 153/59; TEMP 97.7; O2SAT 94
[2025-02-21] MEDS ORDERED: LIDOCAINE 1% SDV 5 ML VIAL SC PRN (06:00)
[2025-02-21] MEDS ORDERED: HEPARIN 1,000 UNITS/ML 10 ML VIAL (FOR RADIOLOGY & DIALYSIS ONLY) XX SCH (06:00)
[2025-02-21] MEDS ORDERED: SODIUM CHLORIDE 0.9% 1000 ML IV PRN (06:00)
[2025-02-21 06:41] LABS: BASO # 0.0 10^3/uL (0.0-0.2); BASO % 0.0 % (0.0-1.0); EOS # 0.0 10^3/uL (0.0-0.5); EOS % 0.0 % (0.0-3.0); LYMPH # 0.3 10^3/uL (1.5-5.0); LYMPH % 3.7 % (24.0-44.0); MONO # 0.3 10^3/uL (0.0-0.8); MONO % 3.6 % (2.0-8.0); NEUTROPHILS # 6.9 10^3/uL (1.5-8.5); NEUTROPHILS % 92.3 % (36.0-66.0); PLATELET COUNT, AUTOMATED 160 10^3/uL (150-450)
[2025-02-21 07:10] LABS: CALCIUM LEVEL 8.0 MG/DL (8.3-10.6); CARBON DIOXIDE LEVEL 24.0 MMOL/L (20-31); CHLORIDE LEVEL 96.0 MMOL/L (98-107); CREATININE FOR GFR 6.96 MG/DL (0.70-1.30); GLOMERULAR FILTRATION RATE 7.4 (>35); POTASSIUM SERUM 5.3 MMOL/L (3.5-5.1); SODIUM LEVEL 134.0 MMOL/L (136-145)
[2025-02-21] MEDS: HEPARIN 1,000 UNITS/ML 10 ML VIAL (FOR RADIOLOGY & DIALYSIS ONLY) IV PRN (09:24)
[2025-02-21 12:30] VITALS: BP 146/56; TEMP 97.9; O2SAT 96
[2025-02-21] MEDS: CLOPIDOGREL 75 MG TAB PO SCH (14:10)
[2025-02-21 16:01] VITALS: BP 151/82; TEMP 96.6; O2SAT 98
[2025-02-21 17:35] VITALS: BP 146/63
[2025-02-21 21:17] VITALS: BP 139/64; TEMP 97.9; O2SAT 92
[2025-02-21] MEDS: HEPARIN SOD 5000 UNITS/ML 1 ML VIAL/SYRINGE SQ SCH (21:40)
[2025-02-22 03:21] VITALS: BP 134/55; TEMP 97.5; O2SAT 93
[2025-02-22 06:27] LABS: BASO # 0.0 10^3/uL (0.0-0.2); BASO % 0.0 % (0.0-1.0); EOS # 0.0 10^3/uL (0.0-0.5); EOS % 0.0 % (0.0-3.0); LYMPH # 0.3 10^3/uL (1.5-5.0); LYMPH % 4.7 % (24.0-44.0); MONO # 0.4 10^3/uL (0.0-0.8); MONO % 6.1 % (2.0-8.0); NEUTROPHILS # 6.4 10^3/uL (1.5-8.5); NEUTROPHILS % 88.0 % (36.0-66.0); PLATELET COUNT, AUTOMATED 187 10^3/uL (150-450)
[2025-02-22 06:58] LABS: CALCIUM LEVEL 8.3 MG/DL (8.3-10.6); CARBON DIOXIDE LEVEL 25.0 MMOL/L (20-31); CHLORIDE LEVEL 102.0 MMOL/L (98-107); CREATININE FOR GFR 4.88 MG/DL (0.70-1.30); GLOMERULAR FILTRATION RATE 11.3 (>35); POTASSIUM SERUM 4.9 MMOL/L (3.5-5.1); SODIUM LEVEL 139.0 MMOL/L (136-145)
[2025-02-22 08:59] VITALS: BP 154/67
[2025-02-22 09:39] LABS: BASO # 0.0 10^3/uL (0.0-0.2); BASO % 0.1 % (0.0-1.0); EOS # 0.0 10^3/uL (0.0-0.5); EOS % 0.0 % (0.0-3.0); LYMPH # 0.8 10^3/uL (1.5-5.0); LYMPH % 9.1 % (24.0-44.0); MONO # 0.5 10^3/uL (0.0-0.8); MONO % 6.4 % (2.0-8.0); NEUTROPHILS # 6.9 10^3/uL (1.5-8.5); NEUTROPHILS % 82.9 % (36.0-66.0); PLATELET COUNT, AUTOMATED 234 10^3/uL (150-450)
[2025-02-22 09:52] LABS: LDH LACTATE DEHYDROGENASE 163 U/L (120-246)
[2025-02-22 09:54] LABS: ALT/SGPT < 9 U/L (7.0-40); AST/SGOT 20 U/L (<34); CALCIUM LEVEL 8.8 MG/DL (8.3-10.6); CARBON DIOXIDE LEVEL 24 MMOL/L (20-31); CHLORIDE LEVEL 100 MMOL/L (98-107); CREATININE FOR GFR 5.19 MG/DL (0.70-1.30); GLOMERULAR FILTRATION RATE 10.5 (>35); POTASSIUM SERUM 4.7 MMOL/L (3.5-5.1); SODIUM LEVEL 138 MMOL/L (136-145)
[2025-02-22] MEDS ORDERED: PRED20TA PO (11:24)
[2025-02-22] MEDS ORDERED: VENTAER INH (11:24)
[2025-02-22 12:00] VITALS: BP 141/64; TEMP 97.9; O2SAT 99
[2025-02-22 14:00] VITALS: O2SAT 98
== END 2025-02-22 14:05 | disposition home health service (06) | DRG 252 ==
LOC: M ED 15:29 → M ED INP 21:02 → M MSPAV 02-14 14:27 → M ICU 02-18 16:59 → M MSPAV 02-20 16:38
PROVIDERS: ADMIT Student in an Organized Health Care Education/Training Program; ATTEND Internal Medicine
PROC: 03C83ZZ Extirpation of Matter from Left Brachial Artery, Percutaneous Approach (ICD-10-PCS; 2025-02-15)
PROC: 0JH63XZ Insertion of Tunneled Vascular Access Device into Chest Subcutaneous Tissue and Fascia, Percutaneous Approach (ICD-10-PCS; 2025-02-15)
PROC: 02H633Z Insertion of Infusion Device into Right Atrium, Percutaneous Approach (ICD-10-PCS; 2025-02-15)
PROC: 05CF3ZZ Extirpation of Matter from Left Cephalic Vein, Percutaneous Approach (ICD-10-PCS; principal; 2025-02-15 08:00)
PROC: 5A1D70Z Performance of Urinary Filtration, Intermittent, Less than 6 Hours Per Day (ICD-10-PCS; 2025-02-16)
PROC: 057F3DZ Dilation of Left Cephalic Vein with Intraluminal Device, Percutaneous Approach (ICD-10-PCS; 2025-02-18)
PROC: 05763DZ Dilation of Left Subclavian Vein with Intraluminal Device, Percutaneous Approach (ICD-10-PCS; 2025-02-18)
PROC: 03783DZ Dilation of Left Brachial Artery with Intraluminal Device, Percutaneous Approach (ICD-10-PCS; 2025-02-18)
DX: T82.868A Thrombosis due to vascular prosthetic devices, implants and grafts, initial encounter (principal); N18.6 End stage renal disease; I13.2 Hypertensive heart and chronic kidney disease with heart failure and with stage 5 chronic kidney disease, or end stage renal disease; N25.81 Secondary hyperparathyroidism of renal origin; Z94.4 Liver transplant status; I87.1 Compression of vein; I24.89 Other forms of acute ischemic heart disease; L03.114 Cellulitis of left upper limb; J44.1 Chronic obstructive pulmonary disease with (acute) exacerbation; Y83.1 Surgical operation with implant of artificial internal device as the cause of abnormal reaction of the patient, or of later complication, without mention of misadventure at the time of the procedure; I48.0 Paroxysmal atrial fibrillation; I50.9 Heart failure, unspecified; E78.5 Hyperlipidemia, unspecified; E87.5 Hyperkalemia; E83.51 Hypocalcemia; M25.512 Pain in left shoulder; D63.1 Anemia in chronic kidney disease; L89.611 Pressure ulcer of right heel, stage 1; L89.621 Pressure ulcer of left heel, stage 1; Z79.60 Long term (current) use of unspecified immunomodulators and immunosuppressants; Z79.02 Long term (current) use of antithrombotics/antiplatelets; Z79.899 Other long term (current) drug therapy; Z99.2 Dependence on renal dialysis; Z90.49 Acquired absence of other specified parts of digestive tract; Z85.46 Personal history of malignant neoplasm of prostate